=== PATIENT | male | born 1985 | race African-American/Black ===

== ENCOUNTER 2018-06-30 19:53 | Emergency (ER) | payer OTHER ==
[~2018-06-30] VITALS: Ht 180.3 cm; Wt 79.4 kg
[2018-06-30] MEDS ORDERED: HYDROXYZINE HCL25 M1 PO (20:31)
[2018-06-30 20:45] VITALS: BP 110/80
== END 2018-06-30 20:45 | disposition home or self-care (01) ==
LOC: ER 19:53
DX: L42 Pityriasis rosea (principal); L25.9 Unspecified contact dermatitis, unspecified cause; F17.210 Nicotine dependence, cigarettes, uncomplicated

== ENCOUNTER 2019-04-17 16:23 | Emergency (ER) | payer OTHER ==
[~2019-04-17] VITALS: Ht 180.3 cm; Wt 77.1 kg
[~2019-04-17 16:23] MED LIST: HYDROXYZINE HCL25 M1 PO
[2019-04-17] MEDS ORDERED: PENICILLIN V P500 MG PO (17:26)
[2019-04-17] MEDS ORDERED: NORCO 5-325 TA1 EAC1 PO (17:26)
[2019-04-17 17:36] VITALS: BP 178/97
== END 2019-04-17 17:36 | disposition home or self-care (01) ==
LOC: ER 16:23
DX: K08.89 Other specified disorders of teeth and supporting structures (principal); F17.210 Nicotine dependence, cigarettes, uncomplicated